=== PATIENT | female | born 1990 | race Caucasian/White ===

== ENCOUNTER 2021-06-23 08:15 | Emergency (ER) | payer SELFPAY ==
[2021-06-23] MEDS ORDERED: XYLOCAINE 1% HCL 20 ML MDV IJ ONE (08:16)
[2021-06-23 08:29] VITALS: BP 159/112; PULSE 91; O2SAT 97
[2021-06-23] MEDS ORDERED: Rocephin 1000 MG INJ IM ONE (08:49)
[2021-06-23] MEDS ORDERED: TORAdol 30 mg Injection IM ONE (08:49)
--- NOTE | 2021-06-23 08:55 | ERPHSYRPT ---
- History of Present Illness Time Seen by Provider: 06/23/21 08:50 Source: patient Exam Limitations: no limitations Patient Subjective Stated Complaint: left ear pain with drainage Triage Nursing Assessment: Pt brought self to the ER, rates left ear pain as 9/10, hypertensive, pain began on , hx of child ear infections and approx 4-5 as an adult, had tubes as a child, reports drainage this AM Physician History: left ear pain with drainage for 3 days. Patient went to [facility] but due to COVID Pandemic they sent her to ER. pain began on , hx of child ear infections and approx 4-5 as an adult, had tubes as a child, reports drainage this AM Timing/Duration: gradual onset Severity: moderate ENT Location: ear (L) Associated Symptoms: ear pain (L), change in hearing, ear drainage, hearing loss, No cough, No fever, No chills, No dizziness, No headache Allergies/Adverse Reactions: No Known Drug Allergies Allergy (Verified 06/23/21 08:29) Travel Risk - International Travel Have you traveled outside of the country in past 3 weeks: No - Coronavirus Screening Are you exhibiting any of the following symptoms?: No Close contact with a COVID-19 positive Pt in past 14-21 Days: No - Vaccine Status Have you recieved a Covid-19 vaccination: No - Review of Systems Constitutional: No Symptoms Eyes: No Symptoms Ears, Nose, & Throat: Ear Pain, Ear Discharge, Hearing Changes Respiratory: No Symptoms Cardiac: No Symptoms Abdominal/Gastrointestinal: No Symptoms Genitourinary Symptoms: No Symptoms Musculoskeletal: No Symptoms Skin: No Symptoms Neurological: No Symptoms Psychological: No Symptoms Endocrine: No Symptoms Hematologic/Lymphatic: No Symptoms - Past Medical History Pertinent Past Medical History: No - Past Surgical History Past Surgical History: Yes Gastrointestinal: Cholecystectomy Female Surgical History: Section Other Surgical History: breast augmentation - Social History Smoking Status: Current every day smoker Exposure to second hand smoke: Yes Drug Use: none Patient Lives Alone: No - Female History Hx Now: No - Nursing Vital Signs Nursing Vital Signs: Initial Vital Signs Temperature 97.8 F 06/23/21 08:20 Pulse Rate 91 H 06/23/21 08:20 Blood Pressure 159/112 06/23/21 08:20 O2 Sat by Pulse Oximetry 97 06/23/21 08:20 Pain Scale Pain Intensity 9 - Physical Exam General Appearance: no apparent distress Eye Exam: bilateral eye: normal inspection Ear Exam: left ear: swelling, tenderness, TM red, TM bulging SpO2: 97 - Course Nursing assessment & vital signs reviewed: Yes Ordered Tests: Medication Summary Generic Name Dose Route Start Last Admin Trade Name Cesilia PRN Reason Stop Dose Admin Ceftriaxone Sodium 1,000 mg 06/23/21 08:49 Rocephin 1000 Mg Inj IM 06/23/21 08:50 STAT ONE Ketorolac Tromethamine 60 mg 06/23/21 08:49 Toradol 30 Mg Injection IM 06/23/21 08:50 STAT ONE - Progress Progress: unchanged, pain not gone completely Counseled pt/family regarding: diagnosis, need for follow-up - Departure Departure Disposition: Home Clinical Impression: Otitis media due to Streptococcus pneumoniae Condition: Stable Critical Care Time: No Referrals: DOCTOR,NO FAMILY [Primary Care Provider] - Instructions: Ear Infections (Otitis Media) in Children (DC) Additional Instructions: Discharge/Care Plan JEWELS DRISCOLL was seen on 06/23/21 in the Emergency Room. The patient was counseled regarding Diagnosis,Lab results, Imaging studies, need for follow up and when to return to the Emergency Room. Prescriptions given: Discharge Note I have spoken with the patient and/or caregivers. I have explained the patient's condition, diagnosis and treatment plan based on the information available to me at this time. I have answered the patient's and/or caregiver's questions and addressed any concerns. The patient and/or caregivers have as good understanding of the patient's diagnosis, condition and treatment plan as can be expected at this point. The vital signs have been stable. The patient's condition is stable and appropriate for discharge from the emergency department. The patient will pursue further outpatient evaluation with the primary care ysician or other designated or consulting physician as outlined in the discharge instructions. The patient and/or caregivers are agreeable to this plan of care and follow-up instructions have been explained in detail. The patient and/or caregivers have received these instruction. The patient/and or caregivers are aware that any significant change in condition or worsening of symptoms should prompt an immediate return to this or the closest emergency department or call 911. JEWELS DRISCOLL was seen on 06/23/21 n the Emergency Room. At that time you were treated for an emergent condition, during your visit Laboratory, Radiology and/or other procedures may have been ordered. It is very important that you follow-up with your Primary Care Physician NO FAMILY DOCTOR within the next 24- 48 hours to review your Emergency Room visit and the final results of testing that was ordered. Some test results such as Urine Cultures, Blood Cultures, and other cultures if ordered will not be finalized for 24-48 hours. If you do not have a Primary Care Provider please call the medical records department at [phone] ext [phone] to obtain a copy of your results or you may sign into our patient portal to obtain these results by visiting us @ [email or web address] and completing the following steps: 1. Click on the Patient Portal link 2. Click the Patient Self Enrollment Link to complete the enrollment form and entering your 3. Once the enrollment form is completed you will receive an email with a temporary ID and password at the email address you provided. 4. Next choose a user name and password. Your user name must be at least 4 characters long and your password must be at least 4 characters long. 5. Choose a security question from the list and provide your answer to the question. If you already have signed into the Health Portal you may access your Health Care Information 28/04 by the following steps: 1. Login to our website @ [email or web address] 2. Enter your original user name and password. FAQS The [facility] Health Portal is an online tool that contains your Lab Results, Radiology Reports, Visit History, Discharge Instructions and Health Summary Lab and Radiology Results will not be available for 72 hours on the portal. The Portal is a secure site, passwords are encryted and URLs are re-written so they cannot be copied and pasted. You and authorized family members are the only ones who can access your Portal. Also there is a timeout feature that protects your information if you leave the Portal page open. If you have technical difficulty please use the Contact Us link on the page this will allow you to submit any questions you have regarding the Portal or you may contact the Medical Record Department at [phone]. Prescriptions: Amox Tr/Potass Clav. 875 mg [Augmentin 875-125 Tablet] 875 mg PO BID 10 Days #20 tablet Ciprofloxacin HCl/Dexameth [Ciprodex Otic Suspension] 7.5 ml OT QID #10 drops Naproxen 375 mg [Naprosyn 375 mg] 375 mg PO BID #15 tablet
[2021-06-23] MEDS ORDERED: TORAdol 30 mg Injection ONE (09:02)
[2021-06-23] MEDS ORDERED: Rocephin 1000 MG INJ ONE (09:02)
== END 2021-06-23 09:23 | disposition home or self-care (01) ==
LOC: ED 08:15
DX: H66.92 Otitis media, unspecified, left ear (principal); B95.3 Streptococcus pneumoniae as the cause of diseases classified elsewhere
CPT/HCPCS: 96372; 99283; J0696; J1885